=== PATIENT | male | born 1995 | race Hispanic/Latino ===

== ENCOUNTER 2024-12-13 18:34 | Emergency (ER) | payer SELFPAY ==
[~2024-12-13 18:34] MED LIST: CYCLOBENZAPRINE5 MG PO; KETOROLAC TROME10 MG PO
[2024-12-13 18:40] VITALS: PULSE 67; RESP 20; TEMP 98.5
[2024-12-13] MEDS: KETOROLAC TROMETHAMINE 30 MG/ML VIAL IV STA (20:24)
[2024-12-13] MEDS: DIPHENHYDRAMINE HCL INJ 50 MG/ML VIAL IV ONE (20:51)
[2024-12-13] MEDS: METOCLOPRAMIDE HCL 10 MG/2ML VIAL IV ONE (21:03)
[2024-12-13 21:41] VITALS: BP 133/77; PULSE 68; RESP 18; TEMP 98.5; O2SAT 98
== END 2024-12-13 21:41 | disposition home or self-care (01) ==
LOC: FSED 19:26
DX: R51.9 Headache, unspecified (principal); H53.8 Other visual disturbances; Z11.52 Encounter for screening for COVID-19
CPT/HCPCS: 0223U; 70450; 87400; 96374; 96375; 99283; J1200; J1885; J2765